=== PATIENT | female | born 2000 | race Caucasian/White ===

== ENCOUNTER 2020-02-29 09:30 | Emergency (ER) | payer OTHER ==
--- NOTE | 2020-02-29 10:13 | EDM.PDOC ---
ED HPI GENERAL MEDICAL PROBLEM - General Chief Complaint: ENT Problem Stated Complaint: R EAR PAIN Time Seen by Provider: 02/29/20 10:07 Source of Information: Reports: Patient History Limitations: Reports: No Limitations - History of Present Illness INITIAL COMMENTS - FREE TEXT/NARRATIVE: 19 yo female from out of town presents with about 3 days of R ear pain. Has a hx of a PE tube in that ear. No fever or cold sx's. No recent swimming. Onset: Gradual Onset Date: 02/26/20 Duration: Day(s): (3), Getting Worse Location: Reports: Head (R ear) Quality: Reports: Ache Severity: Moderate Improves with: Reports: None Worsens with: Reports: None Context: Reports: Other (See HPI) Associated Symptoms: Reports: No Other Symptoms Treatments SUSHI CHEF: Reports: Other (see below) (none today) Right Ear Pain Score (Numeric/FACES): 8 - Related Data Allergies Allergy/AdvReac Type Severity Reaction Status Date / Time ciprofloxacin [From Cipro] Allergy Rash Verified 02/29/20 09:55 Home Meds: Home Meds ARIPiprazole [Abilify] 5 mg PO DAILY 02/29/20 [History] Lisdexamfetamine [Vyvanse] 30 mg PO DAILY 02/29/20 [History] Past Medical History Psychiatric History: Reports: ADHD, Anxiety, Bipolar, Depression Endocrine/Metabolic History: Reports: Obesity/BMI 30+ - Infectious Disease History Infectious Disease History: Reports: Chicken Pox - Past Surgical History HEENT Surgical History: Reports: Adenoidectomy, Tonsillectomy, Other (See Below) Other HEENT Surgeries/Procedures: ear surgery Social & Family History - Tobacco Use Smoking Status *Q: Never Smoker Second Hand Smoke Exposure: No - Caffeine Use Caffeine Use: Reports: Soda - Recreational Drug Use Recreational Drug Use: No ED ROS ENT - Review of Systems Review Of Systems: See Below Constitutional: Reports: No Symptoms HEENT: Reports: Ear Pain. Denies: Ear Discharge Respiratory: Reports: No Symptoms Skin: Reports: No Symptoms ED EXAM, ENT - Physical Exam Exam: See Below Exam Limited By: No Limitations General Appearance: Alert, WD/WN, No Apparent Distress, Obese Eye Exam: Bilateral Eye: Normal Inspection Ears: Normal External Exam, Normal Canal, Hearing Grossly Normal, TM Erythema (on the right), Other (appears to still be a perforation in that R ear drum from her PE tube.). No: Normal TMs Nose: Normal Inspection Mouth/Throat: Normal Inspection, Normal Lips, Normal Oropharynx Head: Atraumatic, Normocephalic Neck: Normal Inspection Respiratory/Chest: No Respiratory Distress, Lungs Clear, Normal Breath Sounds, No Accessory Muscle Use Cardiovascular: Regular Rate, Rhythm Neurological: Alert, Oriented, CN II-XII Intact, Normal Cognition, No Motor/Sensory Deficits Psychiatric: Normal Affect, Normal Mood Skin: Warm, Dry, Intact, Normal Color, No Rash Departure - Departure Time of Disposition: 10:12 Disposition: Home, Self-Care 01 Condition: Good Clinical Impression: Right otitis media Qualifiers: Otitis media type: other nonsuppurative Chronicity: acute Recurrence: not specified as recurrent Qualified Code(s): H65.191 - Other acute nonsuppurative otitis media, right ear - Discharge Information *PRESCRIPTION DRUG MONITORING PROGRAM REVIEWED*: No *COPY OF PRESCRIPTION DRUG MONITORING REPORT IN PATIENT AMISHA: No Instructions: Otitis Media, Adult, [id number] Referrals: PCP,None [Primary Care Provider] - Additional Instructions: Take Amoxicillin 875 mg every 12 hrs until gone. For pain relief take acetaminophen 1000 mg every 6 hrs and/or ibuprofen 600 mg every 6 hrs. Keep water out of your ear. Recheck with your provider early in the week.
== END 2020-02-29 10:21 | disposition home or self-care (01) ==
LOC: JP.ED 09:30
DX: H65.191 Other acute nonsuppurative otitis media, right ear (principal); F31.9 Bipolar disorder, unspecified; F90.9 Attention-deficit hyperactivity disorder, unspecified type; E66.9 Obesity, unspecified; Z68.41 Body mass index [BMI] 40.0-44.9, adult; Z79.899 Other long term (current) drug therapy; Z88.1 Allergy status to other antibiotic agents
CPT/HCPCS: 99282

== ENCOUNTER 2020-12-13 09:30 | Emergency (ER) | payer MEDICAID, OTHER ==
[2020-12-13] MEDS ORDERED: Ketorolac 30 MG/ML SDV IM ONE (10:55)
[2020-12-13] MEDS ORDERED: Ondansetron 4 MG Tab.DIS PO ONE (10:56)
--- NOTE | 2020-12-13 10:59 | EDM.PDOC ---
ED HPI GENERAL MEDICAL PROBLEM - General Chief Complaint: Gastrointestinal Problem Stated Complaint: RIGHT SIDE PAIN/VOMITTING Time Seen by Provider: 12/13/20 10:56 Source of Information: Reports: Patient History Limitations: Reports: No Limitations - History of Present Illness INITIAL COMMENTS - FREE TEXT/NARRATIVE: This is a 20-year-old female with history of PCOS who presents with concerns of sudden onset right-sided pelvic pain. She reports that she was at work this morning had a sudden onset of the pain in the right pelvis. It has been persistent since this time. Currently 01/22. Does have history of ruptured ovarian cyst. There is associated nausea. She has no fevers or chills. No diarrhea. No vaginal bleeding or discharge. No history of prior abdominal francisco geries. Right Lower Abdomen Pain Score (Numeric/FACES): 7 - Related Data Allergies Allergy/AdvReac Type Severity Reaction Status Date / Time ciprofloxacin [From Cipro] Allergy Rash Verified 12/13/20 10:03 Home Meds: Home Meds ARIPiprazole [Abilify] 5 mg PO DAILY 02/29/20 [History] Lisdexamfetamine [Vyvanse] 30 mg PO DAILY 02/29/20 [History] metFORMIN [Glucophage] 500 mg PO WITHDINNER 12/13/20 [History] Past Medical History Genitourinary History: Reports: Other (See Below) Other Genitourinary History: POS Psychiatric History: Reports: ADHD, Anxiety, Bipolar, Depression Endocrine/Metabolic History: Reports: Obesity/BMI 30+ - Infectious Disease History Infectious Disease History: Reports: Chicken Pox - Past Surgical History HEENT Surgical History: Reports: Adenoidectomy, Tonsillectomy, Other (See Below) Other HEENT Surgeries/Procedures: ear surgery Social & Family History - Tobacco Use Tobacco Use Status *Q: Never Tobacco User Second Hand Smoke Exposure: No - Caffeine Use Caffeine Use: Reports: Soda - Recreational Drug Use Recreational Drug Use: No ED ROS GENERAL - Review of Systems Review Of Systems: See Below Constitutional: Reports: No Symptoms HEENT: Reports: No Symptoms Respiratory: Reports: No Symptoms Cardiovascular: Reports: No Symptoms Endocrine: Reports: No Symptoms GI/Abdominal: Reports: Abdominal Pain, Nausea : Reports: No Symptoms Musculoskeletal: Reports: No Symptoms Skin: Reports: No Symptoms Neurological: Reports: No Symptoms Psychiatric: Reports: No Symptoms Hematologic/Lymphatic: Reports: No Symptoms Immunologic: Reports: No Symptoms ED EXAM, GI/ABD - Physical Exam Exam: See Below Exam Limited By: No Limitations General Appearance: Alert, No Apparent Distress Ears: Normal External Exam Nose: Normal Inspection Throat/Mouth: Normal Inspection Head: Atraumatic, Normocephalic Neck: Normal Inspection Respiratory/Chest: Lungs Clear Cardiovascular: Regular Rate, Rhythm GI/Abdominal Exam: Soft, No Distention, Tender (Right-sided pelvic tenderness to palpation) Back Exam: Normal Inspection Extremities: Normal Inspection Neurological: Alert, Oriented Psychiatric: Normal Affect, Normal Mood Skin Exam: Warm, Dry Course - Vital Signs Last Recorded V/S: Last Vital Signs Temp 36.4 C 12/13/20 10:09 Pulse 51 L 12/13/20 10:09 Resp 16 12/13/20 10:09 BP 98/48 L 12/13/20 10:09 Pulse Ox 99 12/13/20 10:09 - Orders/Labs/Meds Orders: Active Orders 24 hr Category Date Time Status Transvaginal Non OB [US] Stat Exams 12/13/20 11:40 Taken Labs: Laboratory Tests 12/13/20 12/13/20 Range/Units 11:06 11:06 WBC 9.3 (4.5-11.0) K/uL RBC 4.74 (3.30-5.50) M/uL Hgb 12.4 (12.0-15.0) g/dL Hct 39.4 (36.0-48.0) % MCV 83 (80-98) fL MCH 26 L (27-31) pg MCHC 32 (32-36) % Plt Count 305 (150-400) K/uL Sodium 142 (140-148) mmol/L Potassium 4.0 (3.6-5.2) mmol/L Chloride 105 (100-108) mmol/L Carbon Dioxide 27 (21-32) mmol/L Anion Gap 9.9 (5.0-14.0) mmol/L BUN 22 H (7-18) mg/dL Creatinine 0.8 (0.6-1.0) mg/dL Est Cr Clr Drug Dosing 83.23 mL/min Estimated GFR (MDRD) > 60 (>60) Glucose 90 (74-106) mg/dL Calcium 8.7 (8.5-10.1) mg/dL Total Bilirubin 0.7 (0.2-1.0) mg/dL AST 12 L (15-37) U/L ALT 30 (12-78) U/L Alkaline Phosphatase 59 (46-116) U/L Total Protein 6.8 (6.4-8.2) g/dL Albumin 3.4 (3.4-5.0) g/dL Globulin 3.4 (2.3-3.5) g/dL Albumin/Globulin Ratio 1.0 L (1.2-2.2) Meds: Medications Discontinued Medications Generic Name Dose Route Start Last Admin Trade Name Freq PRN Reason Stop Dose Admin Fentanyl 50 mcg 12/13/20 12:48 12/13/20 14:07 Fentanyl 100 Mcg/2 Ml Sdv IVPUSH 12/13/20 12:49 50 mcg ONETIME ONE Administration Sodium Chloride 85 mls @ 3 mls/sec 12/13/20 13:15 12/13/20 13:45 Normal Saline IV 12/13/20 13:16 3 mls/sec ASDIRECTED CARLOS ENRIQUE Administration Iopamidol 150 ml 12/13/20 13:15 12/13/20 13:46 Iopamidol 612 Mg/Ml 150 Ml Bottle IV 12/13/20 13:16 150 ml . DIRECTED CARLOS ENRIQUE Administration Ketorolac Tromethamine 30 mg 12/13/20 10:55 12/13/20 11:14 Ketorolac 30 Mg/Ml Sdv IM 12/13/20 10:56 30 mg ONETIME ONE Administration Ondansetron HCl 4 mg 12/13/20 10:56 12/13/20 11:14 Ondansetron 4 Mg Tab.Dis PO 12/13/20 10:57 4 mg ONETIME ONE Administration Sodium Chloride 10 ml 12/13/20 13:06 12/13/20 13:45 Sodium Chloride 0.9% 10 Ml Syringe FLUSH 12/13/20 13:07 10 ml ONETIME ONE Administration - Re-Assessments/Exams Free Text/Narrative Re-Assessment/Exam: 20-year-old history of PCOS presents with concerns of right-sided pelvic pain. On exam she has normal vitals, does have tenderness in the right pelvis. History of ovarian cyst. Primary concern on initial evaluation was for a ruptured cyst or ovarian torsion given the sudden onset and location of her pain, pelvic ultrasound obtained and was unremarkable. Abdominal labs are reassuring. Patient was reevaluated, continued to have significant right lower quadrant tenderness, so we did obtain a CT of the abdomen and pelvis which showed no acute pathology. A prominent but noninflamed appendix is noted. Patient was tolerating p.o. Pain was improving. I think she is safe for discharge. We discussed return precautions and if she does come back to the ER with the same pain it may be reasonable to repeat a CT scan given her findings today. 12/13/20 14:54 Departure - Departure Time of Disposition: 14:56 Disposition: Home, Self-Care 01 Clinical Impression: Abdominal pain - Discharge Information Instructions: Abdominal Pain, Adult Referrals: Danya Jorge PA-C [Primary Care Provider] - Forms: ED Department Discharge Additional Instructions: As we discussed, your work-up today was reassuring. We do not see an emergent cause for your pain and think we can continue to follow it at home. Please eat a bland diet. Take Tylenol for discomfort. If you feel like your symptoms are worsening, particularly if you develop fevers, chills, and lose your appetite it would be good to be reevaluated by a physician. Thank you for trusting us to care for you today. Sepsis Event Note (ED) - Evaluation Sepsis Screening Result: No Definite Risk - Focused Exam Vital Signs: Vital Signs Temp Pulse Resp BP Pulse Ox 12/13/20 10:09 36.4 C 51 L 16 98/48 L 99 12/13/20 09:58 36.4 C 51 L 16 98/48 L 99 - My Orders Last 24 Hours: My Active Orders 12/13/20 11:40 Transvaginal Non OB [US] Stat - Assessment/Plan Last 24 Hours: My Active Orders 12/13/20 11:40 Transvaginal Non OB [US] Stat
[2020-12-13] MEDS ORDERED: fentaNYL 100 MCG/2 ML SDV IVPUSH ONE (12:48)
[2020-12-13] MEDS ORDERED: Sodium Chloride 0.9% 10 ML Syringe FLUSH ONE (13:06)
[2020-12-13] MEDS ORDERED: Iopamidol 612 MG/ML 150 ML Bottle IV SCH (13:15)
--- NOTE | 2020-12-13 14:24 | CRLCT ---
INDICATION: Right lower quadrant pain. TECHNIQUE: CT of the abdomen and pelvis performed after IV injection of 150 mL of Isovue. COMPARISON: Pelvic ultrasound today. FINDINGS: Minimal atelectasis in the lung bases. Minimal subpleural nodularity in the dependent lower lungs is likely related to atelectasis. Mild subcutaneous edema. Mild heterogeneous enhancement of the spleen. Abnormal increased number of small lymph nodes diffusely in the abdominal retroperitoneum. Clusters of small to mildly prominent lymph nodes in the abdominal and pelvic mesentery greatest in the right lower quadrant likely reactive or inflammatory in nature. Small lymph nodes along the iliac lymph node chains in the pelvis are not enlarged by CT criteria. Both ovaries contain small follicles. Small amount of free fluid in the pelvis posteriorly. The appendix is upper limits normal to mildly dilated ranging up to 7-8 mm in transverse diameter. Appendix contains a small high-dense amount of high density in its distal lumen either an appendicolith or previously ingested high-density material. The appendiceal wall is mildly thickened however there is no periappendiceal soft tissue stranding to suggest acute appendicitis. If patient`s right lower quadrant pain continues or worsens, repeat imaging of the appendix in the short-term could re-evaluate. At this time, the CT findings are not prominent enough to suggest appendicitis. Remainder negative. IMPRESSION: 1. The appendix is upper limits normal to mildly dilated and its wall is mildly thickened but there is no acute inflammatory fat stranding around the appendix. Findings are not prominent up by CT to suggest acute appendicitis. If the right lower quadrant pain persists or worsens or clinical suspicion for appendicitis persists repeat CT of the pelvis could be done to reassess the appendix. 2. Very small amount of free fluid in the pelvis posteriorly likely physiologic in a patient of this age. 3. Increased number of lymph nodes in the abdomen and pelvis most of which are normal in size but a few which in the right lower quadrant are clustered and mildly prominent but likely reactive or inflammatory in nature. Other findings as above. Please note that all CT scans at this facility use dose modulation, iterative reconstruction, and/or weight-based dosing when appropriate to reduce radiation dose to as low as reasonably achievable. Dictated by Sung Bruner MD @ 12/13/2020 2:22:[address] Sung Bruner @ Dec 13 2020 2:22PM
--- NOTE | 2020-12-16 07:25 | CRLUS ---
Final Report: INDICATION: right pelvic pain, ? rupture ovarian cyst/torsion HISTORY: Right-sided abdominal pain. Evaluate for ovarian torsion or ruptured cyst. COMPARISON: None. TECHNIQUE: Transabdominal and endovaginal imaging of the pelvis was obtained. Endovaginal imaging of the pelvis was obtained to better evaluate the adnexa and endometrial complex. Color/spectral Doppler was performed to evaluate for ovarian torsion. FINDINGS: Uterine corpus measures 7.2 x 3.4 x 4.0 cm. Endometrial complex measures 2 mm on transabdominal imaging. There is no endometrial or myometrial mass. The right ovary measures 2.9 x 2.0 x 2.6 cm. Left ovary measures 3.7 x 2.7 x 3.5 cm. There is no adnexal mass. There is no evidence on grayscale imaging, or color/spectral Doppler, for ovarian torsion. There are peripherally oriented follicular cysts in both ovaries. Ovarian volumes do not appear enlarged. IMPRESSION: 1. There is no adnexal mass. 2. Small amount of free fluid in the rectovaginal pouch of [place], physiologic in a patient of this age. 3. No evidence on grayscale imaging, or color/spectral Doppler, for ovarian torsion. Normal, low resistance, arterial blood flow is preserved to both ovaries on color/spectral Doppler. Dictated by Parker Edwards MD @ 12/13/2020 12:37:24 PM Dictated by: Parker Edwards MD @ 12/13/2020 12:37:31 Signed by: Parker Edwards MD @12/13/2020 12:37:31 PM (Electronic Signature) MTDD
== END 2020-12-13 15:30 | disposition home or self-care (01) ==
LOC: JP.ED 09:30
DX: R10.2 Pelvic and perineal pain (principal); E28.2 Polycystic ovarian syndrome; E66.9 Obesity, unspecified; Z68.41 Body mass index [BMI] 40.0-44.9, adult; Z88.1 Allergy status to other antibiotic agents; Z79.899 Other long term (current) drug therapy; Z79.84 Long term (current) use of oral hypoglycemic drugs
CPT/HCPCS: 36415; 74177; 76830; 76856; 80053; 85027; 96372; 96374; 99284; A9270; J1885; J3010; Q9967

== ENCOUNTER 2020-12-23 08:56 | Emergency (ER) | payer OTHER, MEDICAID ==
[2020-12-23] MEDS ORDERED: Ketorolac 60 MG/2 ML SDV IM ONE (09:51)
--- NOTE | 2020-12-23 10:07 | EDM.PDOC ---
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 She woke up yesterday morning with an intense pain in her right upper back and right shoulder, was seen in the clinic and an x-ray was taken and she was diagnosed with an AC separation. She is scheduled to see orthopedics tomorrow. Her right arm is in a sling, but today her pain is worse so they wanted to be checked. No paresthesias into the hand, no shortness of breath or chest pain. No specific trauma. Onset: Unknown/Unsure (Woke up with pain yesterday morning) Location: Reports: Upper Extremity, Right Associated Symptoms: Reports: No Other Symptoms Right Shoulder Pain Score (Numeric/FACES): 10 - Related Data Allergies Allergy/AdvReac Type Severity Reaction Status Date / Time ciprofloxacin [From Cipro] Allergy Rash Verified 12/23/20 09:24 Home Meds: Home Meds ARIPiprazole [Abilify] 5 mg PO DAILY 02/29/20 [History] Lisdexamfetamine [Vyvanse] 30 mg PO DAILY 02/29/20 [History] metFORMIN [Glucophage] 500 mg PO WITHDINNER 12/13/20 [History] Cyclobenzaprine [Flexeril] 10 mg PO TID 12/23/20 [History] Ibuprofen 300 mg PO Q6HR PRN 12/23/20 [History] LORazepam [Lorazepam] 0.5 mg PO ASDIRECTED 12/23/20 [History] Norethindrone-Ethin. Estradiol [Alyacen] 1 each PO DAILY 12/23/20 [History] Past Medical History Genitourinary History: Reports: Other (See Below) Other Genitourinary History: PSO Psychiatric History: Reports: ADHD, Anxiety, Bipolar, Depression Endocrine/Metabolic History: Reports: Obesity/BMI 30+ - Infectious Disease History Infectious Disease History: Reports: Chicken Pox, Novel Coronavirus Other Infectious Disease History: covid 06/2020 - Past Surgical History HEENT Surgical History: Reports: Adenoidectomy, Tonsillectomy, Other (See Below) Other HEENT Surgeries/Procedures: ear surgery Social & Family History - Tobacco Use Tobacco Use Status *Q: Never Tobacco User - Caffeine Use Caffeine Use: Reports: Soda - Recreational Drug Use Recreational Drug Use: No ED ROS GENERAL - Review of Systems Review Of Systems: See Below Constitutional: Denies: Fever, Chills HEENT: Denies: Vision Change Respiratory: Denies: Shortness of Breath GI/Abdominal: Denies: Abdominal Pain, Nausea, Vomiting Musculoskeletal: Reports: Neck Pain, Shoulder Pain, Arm Pain, Back Pain Skin: Denies: Bruising, Rash Neurological: Denies: Paresthesia (No paresthesias of the right arm) Psychiatric: Reports: No Symptoms ED EXAM, UPPER BACK/NECK PAIN - Physical Exam Exam: See Below Exam Limited By: No Limitations General Appearance: Alert, No Apparent Distress, Other (Does look uncomfortable when moving especially the right shoulder or right arm) Head Exam: Atraumatic Neck Exam: Tenderness, Other (She is tender over the lower paracervical muscles on the right side into the rhomboid and trapezius) Cardiovascular/Respiratory: Regular Rate, Rhythm Extremities: Other (Full range of motion passively of the right shoulder but tender with extension and rotation. On palpation the trapezius, rhomboid on the right side and across the posterior shoulder is very tender to palpation) Neurologic: Normal Mood/Affect, Oriented x 3 Course - Vital Signs Last Recorded V/S: Last Vital Signs Temp 97.7 F 12/23/20 09:19 Pulse 66 12/23/20 09:19 Resp 16 12/23/20 09:19 BP 122/77 12/23/20 09:19 Pulse Ox 97 12/23/20 09:19 - Orders/Labs/Meds Meds: Medications Discontinued Medications Generic Name Dose Route Start Last Admin Trade Name Freq PRN Reason Stop Dose Admin Ketorolac Tromethamine 60 mg 12/23/20 09:51 12/23/20 09:56 Ketorolac 60 Mg/2 Ml Sdv IM 12/23/20 09:52 60 mg ONETIME ONE Administration - Re-Assessments/Exams Free Text/Narrative Re-Assessment/Exam: 12/23/20 17:19 Reviewed the x-ray from the clinic, there was minimal if any AC separation read and clinical correlation was advised. There is no trauma to the shoulder, this is unlikely AC separation but more likely just to strain of the rhomboid and trapezius on the right side. She can keep her appointment tomorrow, she was given an injection of Toradol and a small amount of hydrocodone for extra pain control until tomorrow. She was encouraged to take the sling off, use the arm as much as possible and some heat to the area may be beneficial. Departure - Departure Time of Disposition: 10:17 Disposition: Home, Self-Care 01 Clinical Impression: Trapezius strain Qualifiers: Encounter type: initial encounter Laterality: right Qualified Code(s): S46.811A - Strain of other muscles, fascia and tendons at shoulder and upper arm level, right arm, initial encounter - Discharge Information Instructions: Muscle Strain, [id number] Referrals: Danya Jorge PA-C [Primary Care Provider] - Forms: ED Department Discharge Care Plan Goals: Increase activity as tolerated and recheck tomorrow as scheduled. Continue with medications as prescribed. Heat may be more beneficial. Sepsis Event Note (ED) - Evaluation Sepsis Screening Result: No Definite Risk - Focused Exam Vital Signs: Vital Signs Temp Pulse Resp BP Pulse Ox 12/23/20 09:19 97.7 F 66 16 122/77 97
== END 2020-12-23 10:17 | disposition home or self-care (01) ==
LOC: JP.ED 08:56
DX: S46.811A Strain of other muscles, fascia and tendons at shoulder and upper arm level, right arm, initial encounter (principal); E66.9 Obesity, unspecified; Z68.30 Body mass index [BMI] 30.0-30.9, adult; Z86.16 Personal history of COVID-19; Z88.1 Allergy status to other antibiotic agents; X50.1XXA Overexertion from prolonged static or awkward postures, initial encounter; Y99.0 Civilian activity done for income or pay
CPT/HCPCS: 96372; 99283; J1885

== ENCOUNTER 2021-01-17 11:20 | Emergency (ER) | payer MEDICAID ==
--- NOTE | 2021-01-17 13:38 | EDM.PDOC ---
ED HPI GENERAL MEDICAL PROBLEM - General Chief Complaint: ENT Problem Stated Complaint: RIGHT EAR ACHE HAD SURGERY Time Seen by Provider: 01/17/21 13:20 Source of Information: Reports: Patient History Limitations: Reports: No Limitations - History of Present Illness INITIAL COMMENTS - FREE TEXT/NARRATIVE: 20-year-old female who [place] and now has had significant pain in her right ear for the past 2 days. She noticed a small amount of draining as well, some pain is radiating down into the jaw. No cough, shortness of breath or fever. Onset: Gradual Duration: Day(s): (2 days) Location: Reports: Other (Right ear) Associated Symptoms: Reports: No Other Symptoms - Related Data Allergies Allergy/AdvReac Type Severity Reaction Status Date / Time ciprofloxacin [From Cipro] Allergy Rash Verified 01/17/21 13:14 Home Meds: Home Meds ARIPiprazole [Abilify] 5 mg PO DAILY 02/29/20 [History] Lisdexamfetamine [Vyvanse] 30 mg PO DAILY 02/29/20 [History] metFORMIN [Glucophage] 500 mg PO WITHDINNER 12/13/20 [History] Cyclobenzaprine [Flexeril] 10 mg PO TID 12/23/20 [History] Ibuprofen 300 mg PO Q6HR PRN 12/23/20 [History] LORazepam [Lorazepam] 0.5 mg PO ASDIRECTED 12/23/20 [History] Norethindrone-Ethin. 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 Psychiatric History: Reports: ADHD, Anxiety, Bipolar, Depression Endocrine/Metabolic History: Reports: Obesity/BMI 30+ - Infectious Disease History Infectious Disease History: Reports: Chicken Pox, Novel Coronavirus Other Infectious Disease History: covid 06/2020 - Past Surgical History Head Surgeries/Procedures: Reports: None HEENT Surgical History: Reports: Adenoidectomy, Tonsillectomy, Other (See Below) Other HEENT Surgeries/Procedures: ear surgery Female Surgical History: Reports: None Endocrine Surgical History: Reports: None Dermatological Surgical History: Reports: None Social & Family History - Tobacco Use Tobacco Use Status *Q: Never Tobacco User Second Hand Smoke Exposure: No - Caffeine Use Caffeine Use: Reports: Soda - Recreational Drug Use Recreational Drug Use: No ED ROS ENT - Review of Systems Review Of Systems: See Below Constitutional: Denies: Fever, Chills HEENT: Reports: Ear Pain (Right side only) Respiratory: Reports: No Symptoms GI/Abdominal: Reports: No Symptoms Skin: Denies: Erythema (No erythema of the right face) Neurological: Denies: Headache ED EXAM, ENT - Physical Exam Exam: See Below Exam Limited By: No Limitations General Appearance: Alert, No Apparent Distress (Looks uncomfortable but not distressed) Eye Exam: Bilateral Eye: Normal Inspection Ears: Normal TMs (Tympanic membranes look fairly normal bilaterally, she has some significant cerumen on the left side but the right side is clear but very inflamed, canal is exudative and helix is tender to move) Head: Atraumatic Neck: No: Lymphadenopathy (R), Lymphadenopathy (L) Respiratory/Chest: No Respiratory Distress, Lungs Clear Cardiovascular: Regular Rate, Rhythm Course - Vital Signs Last Recorded V/S: Last Vital Signs Temp 97.7 F 01/17/21 13:16 Pulse 64 01/17/21 13:16 Resp 16 01/17/21 13:16 BP 117/54 L 01/17/21 13:16 Pulse Ox 99 01/17/21 13:16 - Re-Assessments/Exams Free Text/Narrative Re-Assessment/Exam: 01/17/21 13:36 Patient has right-sided otitis externa. I encouraged her to continue with anti- inflammatories as needed for discomfort, and place 4 drops of Cortisporin into the right ear every 4 hours for the next several days until it improves. If not improving in 48 to 72 hours she can recheck. Departure - Departure Time of Disposition: 13:44 Disposition: Home, Self-Care 01 Clinical Impression: Otitis externa Qualifiers: Otitis externa type: swimmer's ear Chronicity: acute Laterality: right Qualified Code(s): H60.331 - Swimmer's ear, right ear - Discharge Information Instructions: Otitis Externa Referrals: Danya Jorge PA-C [Primary Care Provider] - Forms: ED Department Discharge Care Plan Goals: Take a regular dose of Aleve or ibuprofen which will be helpful for pain, and placed 4 drops of Cortisporin into your right ear every 4 hours for the next several days until it quiets down and improves and stops hurting. Keep ear dry during treatment, and recheck in 2 to 3 days if not improving satisfactorily. Sepsis Event Note (ED) - Evaluation Sepsis Screening Result: No Definite Risk - Focused Exam Vital Signs: Vital Signs Temp Pulse Resp BP Pulse Ox 01/17/21 13:16 97.7 F 64 16 117/54 L 99 01/17/21 12:20 97.7 F 64 117/54 L 99
== END 2021-01-17 13:44 | disposition home or self-care (01) ==
LOC: JP.ED 11:20
DX: H60.331 Swimmer's ear, right ear (principal); H60.501 Unspecified acute noninfective otitis externa, right ear; E66.9 Obesity, unspecified; Z68.42 Body mass index [BMI] 45.0-49.9, adult; Z86.16 Personal history of COVID-19; Z88.1 Allergy status to other antibiotic agents
CPT/HCPCS: 99282

== ENCOUNTER 2021-03-17 07:31 | Emergency (ER) | payer MEDICAID ==
[2021-03-17] MEDS ORDERED: Sodium Chloride 0.9% 10 ML Syringe FLUSH PRN (08:03)
--- NOTE | 2021-03-17 08:07 | EDM.PDOC ---
ED HPI GENERAL MEDICAL PROBLEM - General Chief Complaint: Abdominal Pain Stated Complaint: stomach pain began about 5:30 Time Seen by Provider: 03/17/21 07:58 Source of Information: Reports: Patient, Family, RN Notes Reviewed History Limitations: Reports: No Limitations - History of Present Illness INITIAL COMMENTS - FREE TEXT/NARRATIVE: 20-year-old female presents emergency department a sudden onset abdominal pain, she states it started about 2 hours prior to presentation in the emergency department it is predominantly in her right lower quadrant and is intense she states she is not passing gas does feel nauseated no shortness of breath or chest pain no history of abdominal surgeries Right Lower Abdomen Pain Score (Numeric/FACES): 8 - Related Data Allergies Allergy/AdvReac Type Severity Reaction Status Date / Time ciprofloxacin [From Cipro] Allergy Rash Verified 03/17/21 07:54 Home Meds: Home Meds ARIPiprazole [Abilify] 5 mg PO DAILY 02/29/20 [History] Lisdexamfetamine [Vyvanse] 30 mg PO DAILY 02/29/20 [History] metFORMIN [Glucophage] 500 mg PO WITHDINNER 12/13/20 [History] Norethindrone-Ethin. 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 Psychiatric History: Reports: ADHD, Anxiety, Bipolar, Depression Endocrine/Metabolic History: Reports: Obesity/BMI 30+ - Infectious Disease History Infectious Disease History: Reports: Chicken Pox, Novel Coronavirus Other Infectious Disease History: covid 06/2020 - Past Surgical History HEENT Surgical History: Reports: Adenoidectomy, Tonsillectomy, Other (See Below) Other HEENT Surgeries/Procedures: ear surgery Social & Family History - Tobacco Use Tobacco Use Status *Q: Never Tobacco User - Caffeine Use Caffeine Use: Reports: None - Recreational Drug Use Recreational Drug Use: No ED ROS GENERAL - Review of Systems Review Of Systems: See Below Constitutional: Reports: No Symptoms HEENT: Reports: No Symptoms Respiratory: Reports: No Symptoms Cardiovascular: Reports: No Symptoms GI/Abdominal: Reports: Abdominal Pain, Nausea. Denies: Flatus, Vomiting : Reports: No Symptoms ED EXAM, GI/ABD - Physical Exam Exam: See Below Exam Limited By: No Limitations General Appearance: Alert, WD/WN, No Apparent Distress Respiratory/Chest: No Respiratory Distress, Lungs Clear, Normal Breath Sounds, No Accessory Muscle Use, Chest Non-Tender Cardiovascular: Regular Rate, Rhythm, No Murmur GI/Abdominal Exam: Normal Bowel Sounds, Soft, No Distention, Guarding, Rebound, Tender (Right lower quadrant) Course - Vital Signs Last Recorded V/S: Last Vital Signs Temp 97.3 F 03/17/21 07:47 Pulse 75 03/17/21 07:47 Resp 20 03/17/21 07:47 BP 105/43 L 03/17/21 07:47 Pulse Ox 96 03/17/21 07:47 - Orders/Labs/Meds Orders: Active Orders 24 hr Category Date Time Status Peripheral IV Care [RC] . DIRECTED Care 03/17/21 08:04 Active Lactated Ringers [Ringers, Lactated] 1,000 ml Med 03/17/21 08:15 Active IV ASDIRECTED Sodium Chloride 0.9% [Saline Flush] Med 03/17/21 08:03 Active 10 ml FLUSH ASDIRECTED PRN Peripheral IV Insertion Adult [OM.PC] Urgent Oth 03/17/21 08:03 Ordered Medication Orders Lactated Ringer's (Ringers, Lactated) 1,000 mls @ 500 mls/hr IV ASDIRECTED CARLOS ENRIQUE Last Admin: 03/17/21 08:20 Dose: 500 mls/hr Documented by: KEISHA Sodium Chloride (Sodium Chloride 0.9% 10 Ml Syringe) 10 ml FLUSH ASDIRECTED PRN PRN Reason: Keep Vein Open Labs: Laboratory Tests 03/17/21 03/17/21 03/17/21 Range/Units 08:18 08:18 08:18 WBC 9.9 (4.5-11.0) K/uL RBC 4.88 (3.30-5.50) M/uL Hgb 13.2 (12.0-15.0) g/dL Hct 40.0 (36.0-48.0) % MCV 82 (80-98) fL MCH 27 (27-31) pg MCHC 33 (32-36) % Plt Count 270 (150-400) K/uL Neut % (Auto) 59.5 (36-66) % Lymph % (Auto) 28.7 (24-44) % Park % (Auto) 8.2 H (2-6) % Eos % (Auto) 2.9 (2-4) % Baso % (Auto) 0.7 (0-1) % Sodium 138 L (140-148) mmol/L Potassium 3.8 (3.6-5.2) mmol/L Chloride 103 (100-108) mmol/L Carbon Dioxide 27 (21-32) mmol/L Anion Gap 11.8 (5.0-14.0) mmol/L BUN 19 H (7-18) mg/dL Creatinine 0.8 (0.6-1.0) mg/dL Est Cr Clr Drug Dosing 79.23 mL/min Estimated GFR (MDRD) > 60 (>60) Glucose 93 (74-106) mg/dL Lactic Acid 1.1 (0.4-2.0) mmol/L Calcium 8.7 (8.5-10.1) mg/dL Total Bilirubin 0.9 (0.2-1.0) mg/dL AST 28 D (15-37) U/L ALT 51 (12-78) U/L Alkaline Phosphatase 62 (46-116) U/L Total Protein 7.1 (6.4-8.2) g/dL Albumin 3.4 (3.4-5.0) g/dL Globulin 3.7 H (2.3-3.5) g/dL Albumin/Globulin Ratio 0.9 L (1.2-2.2) HCG, Qual Urine Color (YELLOW) Urine Appearance (CLEAR) Urine pH (5.0-8.0) Ur Specific [place] (1.008-1.030) Urine Protein (NEGATIVE) mg/dL Urine Glucose (UA) (NEGATIVE) mg/dL Urine Ketones (NEGATIVE) mg/dL Urine Occult Blood (NEGATIVE) Urine Nitrite (NEGATIVE) Urine Bilirubin (NEGATIVE) Urine Urobilinogen (0.2-1.0) EU/dL Ur Leukocyte Esterase (NEGATIVE) Urine RBC (0-5) Urine WBC (0-5) Ur Epithelial Cells Amorphous Sediment Urine Bacteria Urine Mucus Urine Other 03/17/21 03/17/21 Range/Units 08:18 09:35 WBC (4.5-11.0) K/uL RBC (3.30-5.50) M/uL Hgb (12.0-15.0) g/dL Hct (36.0-48.0) % MCV (80-98) fL MCH (27-31) pg MCHC (32-36) % Plt Count (150-400) K/uL Neut % (Auto) (36-66) % Lymph % (Auto) (24-44) % Park % (Auto) (2-6) % Eos % (Auto) (2-4) % Baso % (Auto) (0-1) % Sodium (140-148) mmol/L Potassium (3.6-5.2) mmol/L Chloride (100-108) mmol/L Carbon Dioxide (21-32) mmol/L Anion Gap (5.0-14.0) mmol/L BUN (7-18) mg/dL Creatinine (0.6-1.0) mg/dL Est Cr Clr Drug Dosing mL/min Estimated GFR (MDRD) (>60) Glucose (74-106) mg/dL Lactic Acid (0.4-2.0) mmol/L Calcium (8.5-10.1) mg/dL Total Bilirubin (0.2-1.0) mg/dL AST (15-37) U/L ALT (12-78) U/L Alkaline Phosphatase (46-116) U/L Total Protein (6.4-8.2) g/dL Albumin (3.4-5.0) g/dL Globulin (2.3-3.5) g/dL Albumin/Globulin Ratio (1.2-2.2) HCG, Qual Negative Urine Color Yellow (YELLOW) Urine Appearance Clear (CLEAR) Urine pH 7.5 (5.0-8.0) Ur Specific [place] 1.020 (1.008-1.030) Urine Protein Negative (NEGATIVE) mg/dL Urine Glucose (UA) Negative (NEGATIVE) mg/dL Urine Ketones Negative (NEGATIVE) mg/dL Urine Occult Blood Negative (NEGATIVE) Urine Nitrite Negative (NEGATIVE) Urine Bilirubin Negative (NEGATIVE) Urine Urobilinogen 0.2 (0.2-1.0) EU/dL Ur Leukocyte Esterase Negative (NEGATIVE) Urine RBC 0-5 (0-5) Urine WBC 0-5 (0-5) Ur Epithelial Cells Moderate Amorphous Sediment Few Urine Bacteria Few Urine Mucus Not seen Urine Other See note Meds: Medications Generic Name Dose Route Start Last Admin Trade Name Freq PRN Reason Stop Dose Admin Lactated Ringer's 1,000 mls @ 500 mls/hr 03/17/21 08:15 03/17/21 08:20 Ringers, Lactated IV 500 mls/hr ASDIRECTED CARLOS ENRIQUE Administration Sodium Chloride 10 ml 03/17/21 08:03 Sodium Chloride 0.9% 10 Ml Syringe FLUSH ASDIRECTED PRN Keep Vein Open Discontinued Medications Generic Name Dose Route Start Last Admin Trade Name Freq PRN Reason Stop Dose Admin Fentanyl 50 mcg 03/17/21 10:28 Fentanyl 100 Mcg/2 Ml Sdv IVPUSH 03/17/21 10:29 ONETIME ONE Sodium Chloride 85 mls @ 3 mls/sec 03/17/21 08:15 03/17/21 09:09 Normal Saline IV 03/17/21 08:16 3 mls/sec ASDIRECTED CARLOS ENRIQUE Administration Iopamidol 150 ml 03/17/21 08:15 03/17/21 09:10 Iopamidol 612 Mg/Ml 150 Ml Bottle IV 03/17/21 08:16 150 ml . DIRECTED CARLOS ENRIQUE Administration Ondansetron HCl 4 mg 03/17/21 10:28 Ondansetron 4 Mg/2 Ml Sdv IVPUSH 03/17/21 10:29 ONETIME ONE Sodium Chloride 10 ml 03/17/21 08:08 03/17/21 09:09 Sodium Chloride 0.9% 10 Ml Syringe FLUSH 03/17/21 08:09 10 ml ONETIME ONE Administration Departure - Departure Time of Disposition: 10:36 Disposition: Home, Self-Care 01 Condition: Fair Clinical Impression: Abdominal pain Qualifiers: Abdominal location: right lower quadrant Qualified Code(s): R10.31 - Right lower quadrant pain - Discharge Information Prescriptions: Cefuroxime [Ceftin] 250 mg PO BID #14 tab metroNIDAZOLE [Flagyl] 500 mg PO Q12H #14 tab Acetaminophen/HYDROcodone [HYDROcodone-Acetaminophen 5-325 MG *] 1 tab PO Q6H PRN #10 each PRN Reason: Pain Instructions: Abdominal Pain, Adult Referrals: PCP,None [Primary Care Provider] - Forms: ED Department Discharge, ED Return to Work/School Form Additional Instructions: Use ibuprofen for baseline pain control use hydrocodone for breakthrough pain, start both antibiotics today please follow-up with general surgery at the [facility] if not better Dr. Mckeon, if symptoms become worse please report to the emergency department for further evaluation Sepsis Event Note (ED) - Focused Exam Vital Signs: Vital Signs Temp Pulse Resp BP Pulse Ox 03/17/21 07:47 97.3 F 75 20 105/43 L 96 - My Orders Last 24 Hours: My Active Orders 03/17/21 08:03 Sodium Chloride 0.9% [Saline Flush] 10 ml FLUSH ASDIRECTED PRN Peripheral IV Insertion Adult [OM.PC] Urgent 03/17/21 08:04 Peripheral IV Care [RC] . DIRECTED 03/17/21 08:15 Lactated Ringers [Ringers, Lactated] 1,000 ml IV ASDIRECTED - Assessment/Plan Last 24 Hours: My Active Orders 03/17/21 08:03 Sodium Chloride 0.9% [Saline Flush] 10 ml FLUSH ASDIRECTED PRN Peripheral IV Insertion Adult [OM.PC] Urgent 03/17/21 08:04 Peripheral IV Care [RC] . DIRECTED 03/17/21 08:15 Lactated Ringers [Ringers, Lactated] 1,000 ml IV ASDIRECTED Plan: Assessment Acuity = acute Site and laterality = right lower quadrant pain Etiology = possibly early acute appendicitis unclear Manifestations = none Location of injury = Home Lab values = CBC, CMP, lactic acid all within normal limits hCG was negative CT scan of the abdomen shows unclear etiology possible acute early appendicitis Plan Call discussed case Dr. Mckeon surgeon on-call at 1030 recommended watchful waiting at this time however placed on antibiotics of Ceftin 250 mg p.o. twice daily x7 days as well as Flagyl 500 mg p.o. twice daily x7 days, prescription written for hydrocodone 5/325 1 tab p.o. every 6 hours as needed total #10, will follow up with general surgery if no improvement return to the emergency department worsening of symptoms This note was dictated using [employer] voice recognition software please call with any questions on syntax or grammar.
[2021-03-17] MEDS ORDERED: Iopamidol 612 MG/ML 150 ML Bottle IV SCH (08:15)
[2021-03-17] MEDS ORDERED: Lactated Ringers 1,000 ML IV SCH (08:15)
[2021-03-17] MEDS: Sodium Chloride 0.9% 10 ML Syringe FLUSH ONE ×2 (08:21→09:09)
--- NOTE | 2021-03-17 10:04 | CT ---
Abdomen Pelvis w Cont CLINICAL HISTORY: Right lower quadrant pain COMPARISON: November 2020. TECHNIQUE: Transverse scans were obtained from the base of the lungs to the pubic symphysis following oral contrast and IV infusion of contrast.Auto dosage reduction and iterative reconstructiontechniques employed. FINDINGS: The lung bases are clear. The liver is free of mass or biliary dilatation. The gallbladder has a normal contour. The spleen has a normal size and shape. The pancreas shows no mass or inflammatory change. The adrenal glands appear normal bilaterally . The kidneys are free of mass, stones or hydronephrosis.. The ureters have a normal course and caliber. The bladder has a normal configuration. The uterus has a normal contour. No adnexal masses or abnormal fluid collections are identified.. The aorta has a normal course and caliber. There is no suspicious retroperitoneal lymphadenopathy The small intestinal configuration is nonacute. There is gas and feces throughout the colon. The appendix measures a maximum diameter of 8 mm which is upper limits of normal. There is a small appendicolith in the proximal third There is no significant stranding in the periappendiceal fat. There are a few small mesenteric lymph nodes in the mid and right abdomen. These appear slightly more prominent than on prior study. IMPRESSION: Appendix measures upper limits of normal diameter but is similar to the study from November 2020. Small appendicolith unchanged. No significant inflammatory changes are seen in the right lower quadrant. Low-grade appendicitis cannot be absolutely excluded Scattered mildly prominent lymph nodes in the mesentery. This may be increased slightly since prior study. This can be seen with mesenteric adenitis
[2021-03-17] MEDS ORDERED: fentaNYL 100 MCG/2 ML SDV IVPUSH ONE (10:28)
[2021-03-17] MEDS ORDERED: Ondansetron 4 MG/2 ML SDV IVPUSH ONE (10:28)
== END 2021-03-17 11:15 | disposition home or self-care (01) ==
LOC: JP.ED 07:31
DX: R10.31 Right lower quadrant pain (principal); E66.9 Obesity, unspecified; Z68.42 Body mass index [BMI] 45.0-49.9, adult; Z88.1 Allergy status to other antibiotic agents; Z79.84 Long term (current) use of oral hypoglycemic drugs; Z79.899 Other long term (current) drug therapy; Z86.16 Personal history of COVID-19
CPT/HCPCS: 36415; 74177; 80053; 81001; 83605; 84703; 85025; 96374; 96375; 99284; J2405; J3010; J7120; Q9967

== ENCOUNTER 2021-03-20 07:15 | Emergency (ER) | payer MEDICAID ==
--- NOTE | 2021-03-20 08:02 | EDM.PDOC ---
ED HPI GENERAL MEDICAL PROBLEM - General Chief Complaint: ENT Problem Stated Complaint: LEFT EAR PAIN Time Seen by Provider: 03/20/21 07:45 Source of Information: Reports: Patient, Old Records, RN History Limitations: Reports: No Limitations - History of Present Illness INITIAL COMMENTS - FREE TEXT/NARRATIVE: 20 yo female presents with L ear drainage. Says the ear felt plugged and she pulled in the ear yesterday. Overnight she had a lot of brown drainage and now the ear is not as plugged. Is having a mild amount of pain. No fever. Is currently taking metronidazole and Ceftin for concern about early appendicitis. Does not mention any abdominal pain today. Has issues with recurrent ear infections and has a tube in the L ear "permanently". Onset: Gradual Onset Date: 03/19/21 Duration: Hour(s):, Constant (plugged feeling is better however) Location: Reports: Head (L ear) Quality: Reports: Dull Severity: Mild Improves with: Reports: None Worsens with: Reports: None Context: Reports: Other (See HPI) Associated Symptoms: Reports: No Other Symptoms Treatments [employer] ROOTED HAIR: Reports: Other (see below) (on 2 antibiotics currently) left ear Pain Score (Numeric/FACES): 9 - Related Data Allergies Allergy/AdvReac Type Severity Reaction Status Date / Time No Known Allergies Allergy Verified 03/20/21 07:48 Home Meds: Home Meds Acetaminophen/HYDROcodone [HYDROcodone-Acetaminophen 5-325 MG *] 1 tab PO Q6H PRN #10 each 03/17/21 [Rx] Cefuroxime [Ceftin] 250 mg PO BID #14 tab 03/17/21 [Rx] Omeprazole 40 mg PO DAILY 03/17/21 [History] metroNIDAZOLE [Flagyl] 500 mg PO Q12H #14 tab 03/17/21 [Rx] Past Medical History HEENT History: Reports: Impaired Vision Genitourinary History: Reports: Other (See Below) 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 Psychiatric History: Reports: ADHD, Anxiety, Bipolar, Depression Endocrine/Metabolic History: Reports: Obesity/BMI 30+ - Infectious Disease History Infectious Disease History: Reports: Chicken Pox, Novel Coronavirus Other Infectious Disease History: covid 06/2020 - Past Surgical History Head Surgeries/Procedures: Reports: None HEENT Surgical History: Reports: Adenoidectomy, Tonsillectomy, Other (See Below) Other HEENT Surgeries/Procedures: ear surgery Female Surgical History: Reports: None Endocrine Surgical History: Reports: None Dermatological Surgical History: Reports: None Social & Family History - Tobacco Use Tobacco Use Status *Q: Never Tobacco User - Caffeine Use Caffeine Use: Reports: None - Recreational Drug Use Recreational Drug Use: No ED ROS ENT - Review of Systems Review Of Systems: See Below Constitutional: Reports: No Symptoms HEENT: Reports: Ear Discharge (brown drainage overnight), Ear Pain (Mild, left) Respiratory: Reports: No Symptoms Skin: Reports: No Symptoms ED EXAM, ENT - Physical Exam Exam: See Below Exam Limited By: No Limitations General Appearance: Alert, WD/WN, No Apparent Distress Eye Exam: Bilateral Eye: Normal Inspection Ears: Normal External Exam, Normal Canal, Hearing Grossly Normal, Normal TMs. No: Hearing Loss, Auricular Tenderness, Canal Blood, Canal Discharge, Canal Swelling, TM Obscured by Cerumen (the drainage from the L ear looks like cerumen. There is no remaining wax in that ear. ), Cerumen Impaction Nose: Normal Inspection, No Blood Mouth/Throat: Normal Inspection, Normal Lips, Normal Oropharynx Head: Atraumatic, Normocephalic Neck: Normal Inspection Neurological: Alert, Oriented, CN II-XII Intact, Normal Cognition, No Motor/Sensory Deficits Psychiatric: Normal Affect, Normal Mood Skin: Warm, Dry, Intact, Normal Color, No Rash Course - Vital Signs Last Recorded V/S: Last Vital Signs Temp 36.4 C 03/20/21 07:36 Pulse 56 L 03/20/21 07:36 Resp 14 03/20/21 07:36 BP 113/37 L 03/20/21 07:36 Pulse Ox 96 03/20/21 07:36 Departure - Departure Time of Disposition: 08:02 Disposition: Home, Self-Care 01 Condition: Good Clinical Impression: Left ear pain - Discharge Information *PRESCRIPTION DRUG MONITORING PROGRAM REVIEWED*: Not Applicable *COPY OF PRESCRIPTION DRUG MONITORING REPORT IN PATIENT AMISHA: Not Applicable Instructions: Earache, Adult Referrals: PCP,None [Primary Care Provider] - Additional Instructions: Continue current medications. Add either acetaminophen or ibuprofen for pain relief. Stay in touch with your ENT and/or family doctor regarding your condition. Return as needed. Sepsis Event Note (ED) - Evaluation Sepsis Screening Result: No Definite Risk - Focused Exam Vital Signs: Vital Signs Temp Pulse Resp BP Pulse Ox 03/20/21 07:36 36.4 C 56 L 14 113/37 L 96
== END 2021-03-20 08:13 | disposition home or self-care (01) ==
LOC: JP.ED 07:15
DX: H92.02 Otalgia, left ear (principal); E66.9 Obesity, unspecified; Z68.42 Body mass index [BMI] 45.0-49.9, adult; Z86.16 Personal history of COVID-19; Z79.899 Other long term (current) drug therapy
CPT/HCPCS: 99282

== ENCOUNTER 2021-03-22 15:21 | Observation (INO) | payer MEDICAID ==
[2021-03-22] MEDS ORDERED: Ondansetron 4 MG Tab.DIS PO PRN (16:39)
[2021-03-22] MEDS ORDERED: Magnesium Hydroxide 400 MG/5 ML Susp 30 ML Cup PO PRN (16:39)
[2021-03-22] MEDS ORDERED: LORazepam 2 MG/ML SDV IVPUSH PRN (16:39)
[2021-03-22] MEDS ORDERED: Ondansetron 4 MG/2 ML SDV IV PRN (16:39)
[2021-03-22] MEDS ORDERED: Acetaminophen 325 MG Tab PO PRN (16:39)
[2021-03-22] MEDS ORDERED: Acetaminophen/HYDROcodone 325-5 MG Tab PO PRN (16:40)
[2021-03-22] MEDS ORDERED: fentaNYL 100 MCG/2 ML SDV IVPUSH PRN (16:40)
[2021-03-22] MEDS ORDERED: Sodium Chloride 0.9% 1,000 ML IV SCH (16:45)
--- NOTE | 2021-03-22 16:49 | PCM.HP.2 ---
H&P History of Present Illness - General Date of Service: 03/22/21 Admit Problem/Dx: Admission Diagnosis/Problem Admission Diagnosis/Problem Acute appendicitis Source of Information: Patient, Family, Provider History Limitations: Reports: No Limitations - History of Present Illness Initial Comments - Free Text/Narative: CC: my belly hurt so bad HPI: Azalia presents to the hospital as a direct admission from the walk-in clinic. She reports right lower quadrant abdominal pain that started back on March 17, 5 days ago. Initially the pain was sharp and moderate in nature. CT scan at that time showed a mildly enlarged appendix but no stranding or significant findings. Labs were normal and vitals were normal. She was started on oral antibiotics. Over the last 5 days she has had a progression of her pain to the point that it is severe and she rates it at 9 out of 10. She had a great deal of difficulty getting to sleep last night because of pain. She has been using acetaminophen without much improvement. The pain does not radiate from the right lower quadrant. It has been steadily getting worse. It has been associated with nausea as well as vomiting. She had diarrhea last night. She has had chills but no subjective fevers. No obvious sick contacts. No history of difficulty with anesthesia. Repeat labs in the walk-in clinic were unremarkable. CT scan showed enlargement of the mildly dilated appendix compared to 5 days ago as well as some stranding around the appendix. She will be admitted for surgical management of early acute appendicitis. 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: Reports: Polycystic Ovaries Psychiatric History: Reports: ADHD, Anxiety, Bipolar, Depression Endocrine/Metabolic History: Reports: Obesity/BMI 30+ Dermatologic History: Reports: Other (See Below) Other Dermatologic History: wart like rash on inner right lower leg - Infectious Disease History Infectious Disease History: Reports: Chicken Pox, Novel Coronavirus Other Infectious Disease History: covid 06/2020 - Past Surgical History Head Surgeries/Procedures: Reports: None HEENT Surgical History: Reports: Adenoidectomy, Tonsillectomy, Other (See Below) Other HEENT Surgeries/Procedures: ear surgery Female Surgical History: Reports: None Endocrine Surgical History: Reports: None Dermatological Surgical History: Reports: None Social & Family History - Family History Family Medical History: No Pertinent Family History - Tobacco Use Tobacco Use Status *Q: Never Tobacco User - Caffeine Use Caffeine Use: Reports: Soda - Alcohol Use Alcohol Use History: Yes Alcohol Use in Last Twelve Months: Yes Alcohol Use Frequency: Rarely - Recreational Drug Use Recreational Drug Use: No H&P Review of Systems - Review of Systems: Review Of Systems: See Below Free Text/Narrative: A complete 12 point review of systems was obtained. Pertinent positives and negatives are noted in the history of present illness. All other systems were reviewed and were negative except as noted. Exam - Exam Exam: See Below - Vital Signs Vital Signs: Last Vital Signs Temp 36.4 C 03/22/21 15:35 Pulse 67 03/22/21 15:35 Resp 16 03/22/21 15:35 BP 122/75 03/22/21 15:35 Pulse Ox 99 03/22/21 15:35 Weight: 601.554 kg - Exam Quality Assessment: No: Supplemental Oxygen General: Alert, Oriented, Cooperative, Mild Distress HEENT: Conjunctiva Clear. No: Mucosa Moist & [place] (Dry) Neck: Supple, Trachea Midline Lungs: Clear to Auscultation, Normal Respiratory Effort Cardiovascular: Regular Rate, Regular Rhythm GI/Abdominal Exam: Normal Bowel Sounds, Soft, No Distention, Guarding, Rebound, Tender (Moderate tenderness on the right side and especially in the right lower quadrant) Back Exam: Normal Inspection, Full Range of Motion Extremities: No Pedal Edema. No: Increased Warmth Peripheral Pulses: 2+: Dorsalis Pedis (L), Dorsalis Pedis (R) Skin: Warm, Dry, Rash (2 x 4 cm plaque-like mass with slight erythema and scale right medial lower leg) Neuro Extensive - Mental Status: Alert, Oriented x3, Nl Response to Commands Neuro Extensive - Motor, Sensory, Reflexes: No: Dysarthria, Abnormal Motor, Tremor Psychiatric: Alert, Normal Affect - Patient Data Lab Results Last 24 hrs: White count is normal, potassium 3.8, creatinine normal with a GFR greater than 60 Imaging Impressions Last 24 hrs: CT scan of the abdomen pelvis-I did personally review the images obtained earlier in the day-there is mild to moderate dilation of the appendix as well as some surrounding stranding. No evidence for perforation. There is some regional lymphadenopathy as well. Sepsis Event Note - Evaluation Sepsis Screening Result: No Definite Risk - Focused Exam Vital Signs: Vital Signs Temp Pulse Resp BP Pulse Ox 03/22/21 15:35 36.4 C 67 16 122/75 99 *Q Meaningful Use (ADM) - VTE *Q VTE Pharmacological Contraindications *Q: Patient Scheduled Surgery - VTE Risk Assess *Q Each Risk Factor Represents 1 Point: Obesity ( BMI > 25 kg/m2) Total Score 1 Point Risk Factors: 1 Each Risk Factor Represents 2 Points: None Total Score 2 Point Risk Factors: 0 Each Risk Factor Represents 3 Points: None Total Score 3 Point Risk Factors: 0 Each Risk Factor Represents 5 Points: None Total Score 5 Point Risk Factors: 0 Venous Thromboembolism Risk Factor Score *Q: 1 - Problem List (1) Acute appendicitis with localized peritonitis without perforation SNOMED Code(s): 771273592 ICD Code: K35.30 - ACUTE APPENDICITIS WITH LOC PERITONITIS, W/O PERF OR GANGR Status: Acute Current Visit: Yes Qualifiers: Appendicitis gangrene presence: with gangrene Appendicitis abscess presence: without abscess Qualified Code(s): K35.31 - Acute appendicitis with localized peritonitis and gangrene, without perforation Problem List Initiated/Reviewed/Updated: Yes Orders Last 24hrs: Active Orders 24 hr Category Date Time Status Patient Status [ADT] Routine ADT 03/22/21 16:39 Ordered Antiembolic Devices [RC] .Routine Care 03/22/21 16:40 Ordered Intake and Output [RC] QSHIFT Care 03/22/21 16:39 Ordered Notify Provider Consults [RC] ASDIRECTED Care 03/22/21 16:42 Ordered Notify Provider Vital Signs [RC] ASDIRECTED Care 03/22/21 16:39 Ordered Oxygen Therapy [RC] PRN Care 03/22/21 16:39 Ordered Up ad Britany [RC] ASDIRECTED Care 03/22/21 16:39 Ordered VTE/DVT Education [RC] Per Unit Routine Care 03/22/21 16:39 Ordered Vital Signs [RC] Q4H Care 03/22/21 16:39 Ordered Consult to Physician [CONS] Routine Cons 03/22/21 16:40 Ordered Nothing per Oral After Midnight Diet [DIET] Diet 03/22/21 Dinner Ordered Regular Diet [DIET] Diet 03/22/21 Dinner Ordered BASIC METABOLIC PANEL,BMP [CHEM] AM Lab 03/23/21 05:11 Ordered CBC W/O DIFF,HEMOGRAM [HEME] AM Lab 03/23/21 05:11 Ordered Acetaminophen [TylenoL] Med 03/22/21 16:39 Ordered 650 mg PO Q4H PRN Acetaminophen/HYDROcodone [[place] 325-5 MG] Med 03/22/21 16:40 Ordered 1 - 2 tab PO Q4H PRN Ampicillin/Sulbactam Na [Unasyn] 3 gm Med 03/22/21 16:45 Ordered Sodium Chloride 0.9% [Normal Saline] 100 ml IV Q6H Aztreonam [Azactam] 1 gm Med 03/22/21 16:45 Ordered Sodium Chloride 0.9% [Normal Saline] 50 ml IV Q8H Docusate Sodium/Sennosides [Senna Plus] Med 03/22/21 16:39 Ordered 1 tab PO BID PRN LORazepam [Ativan] Med 03/22/21 16:39 Ordered 0.5 mg IVPUSH Q4H PRN Lactobacillus Rhamnosus GG [Culturelle] Med 03/22/21 21:00 Ordered 1 cap PO BID Magnesium Hydroxide [Milk of Magnesia] Med 03/22/21 16:39 Ordered 30 ml PO Q12H PRN Ondansetron [Zofran ODT] Med 03/22/21 16:39 Ordered 4 mg PO Q6H PRN Ondansetron [Zofran] Med 03/22/21 16:39 Ordered 4 mg IV Q6H PRN Sodium Chloride 0.9% [Normal Saline] 1,000 ml Med 03/22/21 16:45 Ordered IV ASDIRECTED fentaNYL [Sublimaze] Med 03/22/21 16:40 Ordered 25 mcg IVPUSH Q2H PRN Sequential Compression Device [OM.PC] Routine Oth 03/22/21 16:39 Ordered Resuscitation Status Routine Resus Stat 03/22/21 16:39 Ordered Assessment/Plan Comment:: ASSESSMENT AND PLAN - Acute appendicitis with localized peritonitis-progressive symptoms over the last 5 days. Increasing distention and new stranding around the appendix. Labs are normal. Vitals are fine. Patient having significant pain as well as nausea and vomiting. Case discussed with surgeon and surgical intervention planned for tomorrow. Getting worse despite outpatient antibiotics. Patient is in optimal achievable medical condition and is stable for the proposed procedure. -Antibiotic coverage with Unasyn and aztreonam -IV fluids -Symptomatic management of pain and nausea -Covid screen -Surgical intervention planned for early tomorrow Maintenance issues - -DVT prophylaxis-mechanical -GI prophylaxis-not indicated -Nutrition-regular diet this evening and nothing by mouth after 10 PM -Floyd catheter-not indicated full code CODE STATUS - Admission justification -this patient will be admitted for observation and surgical management of early acute appendicitis Disposition -I anticipate discharge home after the hospital stay Primary care physician -no local primary care Angel Stanton M.D. - Mortality Measure Prognosis:: Good
[2021-03-22] MEDS: Ampicillin/Sulbactam Na 3 GM in Sodium Chloride 0.9% 100 ML IV SCH ×2 (18:34→23:46)
[2021-03-22] MEDS: Lactobacillus Rhamnosus GG (Probiotic) Cap PO SCH (22:22)
[2021-03-23] MEDS ORDERED: Bupivacaine 0.5%/EPINEPHrine 1:200,000 50 ML MDV ONE (04:55)
[2021-03-23] MEDS: Ampicillin/Sulbactam Na 3 GM in Sodium Chloride 0.9% 100 ML IV SCH ×3 (05:08→17:14)
[2021-03-23] MEDS ORDERED: Propofol 200 MG/20 ML SDV ONE (05:13)
[2021-03-23] MEDS ORDERED: Rocuronium 50 MG/5 ML Vial ONE (05:13)
[2021-03-23] MEDS ORDERED: Neostigmine Methylsulfate 1 MG/ML 5 ML Syringe ONE (05:13)
[2021-03-23] MEDS ORDERED: Dexamethasone 4 MG/ML SDV ONE (05:13)
[2021-03-23] MEDS ORDERED: Ondansetron 4 MG/2 ML SDV ONE (05:13)
[2021-03-23] MEDS ORDERED: Glycopyrrolate 0.2 MG/ML 5 ML MDV ONE (05:13)
[2021-03-23] MEDS ORDERED: fentaNYL 250 MCG/5 ML SDV ONE (05:15)
[2021-03-23] MEDS ORDERED: fentaNYL 100 MCG/2 ML SDV ONE (05:56)
[2021-03-23] MEDS ORDERED: hydrOXYzine HCL 100 MG/2 ML SDV IM ONE (05:59)
[2021-03-23] MEDS ORDERED: Sugammadex Sodium 200 MG/2 ML VIAL ONE (06:11)
[2021-03-23] MEDS ORDERED: HYDROmorphone 2 MG Tab PO PRN (07:44)
[2021-03-23] MEDS: Lactobacillus Rhamnosus GG (Probiotic) Cap PO SCH ×2 (08:45→20:46)
[2021-03-23] MEDS: Ibuprofen 600 MG Tab PO SCH ×3 (08:46→20:45)
[2021-03-23] MEDS: Lactated Ringers 1,000 ML IV SCH ×2 (09:42→20:32)
[2021-03-23] MEDS: Acetaminophen 500 MG Tab PO SCH ×3 (10:40→21:53)
[2021-03-24] MEDS: Ampicillin/Sulbactam Na 3 GM in Sodium Chloride 0.9% 100 ML IV SCH ×2 (00:44→05:05)
[2021-03-24] MEDS: Ibuprofen 600 MG Tab PO SCH ×2 (02:49→08:22)
[2021-03-24] MEDS: Acetaminophen 500 MG Tab PO SCH (05:05)
[2021-03-24] MEDS ORDERED: Magnesium Hydroxide 400 MG/5 ML Susp 30 ML Cup PO PRN (07:55)
--- NOTE | 2021-03-24 08:06 | DISCH ---
FINAL DIAGNOSIS: Acute appendicitis. SECONDARY DIAGNOSIS: Polycystic ovary syndrome. OPERATIVE PROCEDURES: Diagnostic laparoscopy with appendectomy. SUMMARY: This is a 20-year-old female presenting with worsening right abdominal pain. Eventually, it became evident this was likely appendicitis. The patient given IV antibiotics and agreed to laparoscopic appendectomy. She had a nonruptured obvious acute appendicitis. She had an unremarkable postoperative course. She would be sent home with Tylenol and ibuprofen as needed for pain along with Dilaudid 2 mg q.6 hours p.r.n. pain #12 and Colace 100 mg p.o. b.i.d. x2 weeks and then p.r.n. and we will send her home with 2 doses of milk of magnesia as well. Wound care instructions were given along with activity level and she will be following with Ara Rock at [facility] on 04/01/2021. /[id number]
[2021-03-24] MEDS: Lactobacillus Rhamnosus GG (Probiotic) Cap PO SCH (08:22)
--- NOTE | 2021-03-30 16:46 | OR ---
DATE OF PROCEDURE: 03/23/2021 SURGEON: Martinez Armstrong MD PREOPERATIVE DIAGNOSIS: Acute appendicitis. POSTOPERATIVE DIAGNOSIS: Acute appendicitis. PROCEDURE: Laparoscopic appendectomy ([id number]). ANESTHESIA: General. INDICATION FOR PROCEDURE: A 20-year-old female presents with increasing right lower quadrant pain. This has been going on for several days, most current imaging showed somewhat distended. The patient was admitted overnight, was initiated on IV antibiotics and is to undergo diagnostic laparoscopy, possible laparotomy with appendectomy this morning. Potential risks including bleeding and infection, problems with appendectomy site dehiscing were all gone over with the patient and mother and they wished to proceed. DETAILS OF PROCEDURE: The patient was taken to the operating room and placed in a supine position. After general endotracheal anesthesia was induced, the abdomen was prepped and draped. Three fingerbreadths superior and to the left of the umbilicus, a transverse incision was made. Peritoneal cavity entered under direct vision with an Optiview trocar, inflated to 15 mmHg pressure of CO2. Laparoscope was reinserted. No underlying trocar insertion site injuries seen. Following this, a 12 mm trocars were placed in the left lower quadrant and right upper quadrant. Abdominal transverse abdominis plane blocks were placed. Appendix was then easily identified coursing somewhat anterior and inferior to the cecal base. This was mobilized upward and the mesentery of the appendix was then divided with Harmonic Scalpel. The base of the appendix was then excised flush with the cecum with a SUSIE villafana load. Good hemostasis at the appendectomy site was confirmed, and at that point, the appendix was retrieved through the specimen bag in the left lower quadrant. No further problems were noted at this point. Drain was felt not to be necessary. The trocars were then sequentially removed and the fascia closed with 0 Vicryl stitch and the skin with 4-0 Vicryl subcuticular stitch. Dressing was applied. The patient was taken to the recovery room in satisfactory condition. Martinez Armstrong MD /[id number]
== END 2021-03-24 09:45 | disposition home or self-care (01) ==
LOC: JP.MS 15:21
PROVIDERS: ADMIT Internal Medicine; ATTEND Internal Medicine
DX: K35.30 Acute appendicitis with localized peritonitis, without perforation or gangrene (principal); E28.2 Polycystic ovarian syndrome; E66.9 Obesity, unspecified; Z79.899 Other long term (current) drug therapy; Z98.890 Other specified postprocedural states; Z01.812 Encounter for preprocedural laboratory examination; Z20.822 Contact with and (suspected) exposure to COVID-19; Z68.41 Body mass index [BMI] 40.0-44.9, adult
CPT/HCPCS: 36415; 44970; 80048; 85027; 87635; 94762; 96365; 96367; 96376; A9270; G0378; J0171; J0295; J1100; J2405; J2704; J2710; J2795; J3010; J3410; J3490; J7030; J7120; 88304; 88341; 88342; 88360; U0002

== ENCOUNTER 2021-04-11 10:36 | Emergency (ER) | payer MEDICAID ==
[2021-04-11] MEDS ORDERED: fentaNYL 100 MCG/2 ML SDV IVPUSH PRN (11:35)
[2021-04-11] MEDS ORDERED: Ondansetron 4 MG/2 ML SDV IVPUSH ONE (11:35)
--- NOTE | 2021-04-11 11:41 | EDM.PDOC ---
ED HPI GENERAL MEDICAL PROBLEM - General Chief Complaint: Abdominal Pain Stated Complaint: PAIN AFTER APENDIX OUT Time Seen by Provider: 04/11/21 11:09 - History of Present Illness INITIAL COMMENTS - FREE TEXT/NARRATIVE: Left lower quad abdomen pain for one week. Described as sharp, burning, constant, and severe. Worse with sitting up, touching the area and rolling in bed. Had a normal BM this am. No N/V. No fever. Appendectomy here on 03/23. Seen in Urgent care one week ago and told it was gas. NOt sexually active, No vaginal discharge. LMP in February and hx of PCOS. 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: Reports: Polycystic Ovaries Psychiatric History: Reports: ADHD, Anxiety, Bipolar, Depression Endocrine/Metabolic History: Reports: Obesity/BMI 30+ Dermatologic History: Reports: Other (See Below) Other Dermatologic History: wart like rash on inner right lower leg - Infectious Disease History Infectious Disease History: Reports: Chicken Pox, Novel Coronavirus Other Infectious Disease History: covid 06/2020 - Past Surgical History Head Surgeries/Procedures: Reports: None HEENT Surgical History: Reports: Adenoidectomy, Tonsillectomy, Other (See Below) Other HEENT Surgeries/Procedures: ear surgery GI Surgical History: Reports: Appendectomy Social & Family History - Family History Family Medical History: No Pertinent Family History - Tobacco Use Tobacco Use Status *Q: Never Tobacco User - Caffeine Use Caffeine Use: Reports: None - Recreational Drug Use Recreational Drug Use: No ED ROS GENERAL - Review of Systems Review Of Systems: See Below Constitutional: Reports: Chills, Night Sweats. Denies: Fever HEENT: Reports: No Symptoms Respiratory: Reports: No Symptoms Cardiovascular: Reports: No Symptoms Endocrine: Reports: No Symptoms GI/Abdominal: Reports: Abdominal Pain. Denies: Constipation, Diarrhea, Nausea, Vomiting : Reports: No Symptoms Musculoskeletal: Reports: No Symptoms Skin: Reports: No Symptoms Neurological: Reports: No Symptoms ED EXAM, GI/ABD - Physical Exam Exam: See Below Exam Limited By: No Limitations General Appearance: Alert, WD/WN, Mild Distress Throat/Mouth: Normal Inspection, Normal Lips, Normal Teeth Head: Normocephalic Neck: Normal Inspection, Supple, Non-Tender. No: Lymphadenopathy (R), Lymphadenopathy (L) Respiratory/Chest: No Respiratory Distress, Lungs Clear, Normal Breath Sounds Cardiovascular: Regular Rate, Rhythm, No Gallop, No Murmur GI/Abdominal Exam: Other (decreased abd pain. Pain with light touch LLQ. Guarding. Laporoscopy scars look good. ) Course - Vital Signs Text/Narrative:: The patient was evaluated. VSS, NAD Exam= tender LLQ, guarding and decreased bowel sounds. Lab= Normal CBC, BMP, Lipase, lactate, LFT, U/A and neg UHCG. IMaging= Normal pelvic U/S and Abd/pelvis CT with contrast. Lots of gas and bowel feces. Patient given IV fluids and pain meds. She will take laxative including Miralax. F/U with pcp if symptoms worsen or if she is concerned. Last Recorded V/S: Last Vital Signs Temp 36.4 C 04/11/21 11:17 Pulse 64 04/11/21 14:04 Resp 16 04/11/21 14:04 BP 109/47 L 04/11/21 14:04 Pulse Ox 95 04/11/21 14:04 - Orders/Labs/Meds Orders: Active Orders 24 hr Category Date Time Status Pelvis Non OB Ltd [US] Stat Exams 04/11/21 11:47 Taken Sodium Chloride 0.9% [Normal Saline] 1,000 ml Med 04/11/21 11:45 Active IV ASDIRECTED Sodium Chloride 0.9% [Normal Saline] 90 ml Med 04/11/21 13:45 Active IV ASDIRECTED fentaNYL [Sublimaze] Med 04/11/21 11:35 Active 50 mcg IVPUSH Q6H PRN Medication Orders Fentanyl (Fentanyl 100 Mcg/2 Ml Sdv) 50 mcg IVPUSH Q6H PRN PRN Reason: Pain (severe 7-10) Last Admin: 04/11/21 12:22 Dose: 50 mcg Documented by: MJBSTA Sodium Chloride (Normal Saline) 1,000 mls @ 1,000 mls/hr IV ASDIRECTED [facility] Last Admin: 04/11/21 12:22 Dose: 1,000 mls/hr Documented by: KEISHA Sodium Chloride (Normal Saline) 90 mls @ 3.5 mls/sec IV ASDIRECTED CARLOS ENRIQUE Last Admin: 04/11/21 13:53 Dose: 3 mls/sec Documented by: DECRMIC Labs: Laboratory Tests 04/11/21 04/11/21 04/11/21 Range/Units 11:49 11:49 11:49 WBC 7.9 (4.5-11.0) K/uL RBC 4.90 (3.30-5.50) M/uL Hgb 13.0 (12.0-15.0) g/dL Hct 39.6 (36.0-48.0) % MCV 81 (80-98) fL MCH 27 (27-31) pg MCHC 33 (32-36) % Plt Count 301 (150-400) K/uL Sodium 137 L (140-148) mmol/L Potassium 3.9 (3.6-5.2) mmol/L Chloride 102 (100-108) mmol/L Carbon Dioxide 26 (21-32) mmol/L Anion Gap 12.9 (5.0-14.0) mmol/L BUN 22 H D (7-18) mg/dL Creatinine 0.7 (0.6-1.0) mg/dL Est Cr Clr Drug Dosing 89.78 mL/min Estimated GFR (MDRD) > 60 (>60) Glucose 90 (74-106) mg/dL Lactic Acid 1.0 (0.4-2.0) mmol/L Calcium 8.6 (8.5-10.1) mg/dL Total Bilirubin 0.5 (0.2-1.0) mg/dL AST 16 (15-37) U/L ALT 30 (12-78) U/L Alkaline Phosphatase 54 (46-116) U/L Total Protein 7.1 (6.4-8.2) g/dL Albumin 3.5 (3.4-5.0) g/dL Globulin 3.6 H (2.3-3.5) g/dL Albumin/Globulin Ratio 1.0 L (1.2-2.2) Lipase 125 (73-393) U/L Urine Color (YELLOW) Urine Appearance (CLEAR) Urine pH (5.0-8.0) Ur Specific [place] (1.008-1.030) Urine Protein (NEGATIVE) mg/dL Urine Glucose (UA) (NEGATIVE) mg/dL Urine Ketones (NEGATIVE) mg/dL Urine Occult Blood (NEGATIVE) Urine Nitrite (NEGATIVE) Urine Bilirubin (NEGATIVE) Urine Urobilinogen (0.2-1.0) EU/dL Ur Leukocyte Esterase (NEGATIVE) Urine RBC (0-5) Urine WBC (0-5) Ur Epithelial Cells Amorphous Sediment Urine Bacteria Urine Mucus Urine HCG, Qual SARS-CoV-2 RNA (KENNY) (NEGATIVE) 04/11/21 04/11/21 04/11/21 Range/Units 13:55 13:55 14:03 WBC (4.5-11.0) K/uL RBC (3.30-5.50) M/uL Hgb (12.0-15.0) g/dL Hct (36.0-48.0) % MCV (80-98) fL MCH (27-31) pg MCHC (32-36) % Plt Count (150-400) K/uL Sodium (140-148) mmol/L Potassium (3.6-5.2) mmol/L Chloride (100-108) mmol/L Carbon Dioxide (21-32) mmol/L Anion Gap (5.0-14.0) mmol/L BUN (7-18) mg/dL Creatinine (0.6-1.0) mg/dL Est Cr Clr Drug Dosing mL/min Estimated GFR (MDRD) (>60) Glucose (74-106) mg/dL Lactic Acid (0.4-2.0) mmol/L Calcium (8.5-10.1) mg/dL Total Bilirubin (0.2-1.0) mg/dL AST (15-37) U/L ALT (12-78) U/L Alkaline Phosphatase (46-116) U/L Total Protein (6.4-8.2) g/dL Albumin (3.4-5.0) g/dL Globulin (2.3-3.5) g/dL Albumin/Globulin Ratio (1.2-2.2) Lipase (73-393) U/L Urine Color Yellow (YELLOW) Urine Appearance Cloudy A (CLEAR) Urine pH 6.5 (5.0-8.0) Ur Specific [place] > 1.030 (1.008-1.030) Urine Protein Negative (NEGATIVE) mg/dL Urine Glucose (UA) Negative (NEGATIVE) mg/dL Urine Ketones Negative (NEGATIVE) mg/dL Urine Occult Blood Negative (NEGATIVE) Urine Nitrite Negative (NEGATIVE) Urine Bilirubin Negative (NEGATIVE) Urine Urobilinogen 0.2 (0.2-1.0) EU/dL Ur Leukocyte Esterase Negative (NEGATIVE) Urine RBC Not seen (0-5) Urine WBC 0-5 (0-5) Ur Epithelial Cells Moderate Amorphous Sediment Not seen Urine Bacteria Many Urine Mucus Many Urine HCG, Qual Negative SARS-CoV-2 RNA (KENNY) Negative (NEGATIVE) Meds: Medications Generic Name Dose Route Start Last Admin Trade Name Freq PRN Reason Stop Dose Admin Fentanyl 50 mcg 04/11/21 11:35 04/11/21 12:22 Fentanyl 100 Mcg/2 Ml Sdv IVPUSH 50 mcg Q6H PRN Administration Pain (severe 7-10) Sodium Chloride 1,000 mls @ 1,000 mls/hr 04/11/21 11:45 04/11/21 12:22 Normal Saline IV 1,000 mls/hr ASDIRECTED CARLOS ENRIQUE Administration Sodium Chloride 90 mls @ 3.5 mls/sec 04/11/21 13:45 04/11/21 13:53 Normal Saline IV 3 mls/sec ASDIRECTED CARLOS ENRIQUE Administration Discontinued Medications Generic Name Dose Route Start Last Admin Trade Name Freq PRN Reason Stop Dose Admin Iopamidol 150 ml 04/11/21 13:45 04/11/21 13:53 Iopamidol 612 Mg/Ml 500 Ml Multipack Bottle IV 04/11/21 13:46 150 ml ONETIME ONE Administration Ondansetron HCl 4 mg 04/11/21 11:35 04/11/21 12:23 Ondansetron 4 Mg/2 Ml Sdv IVPUSH 04/11/21 11:36 4 mg ONETIME ONE Administration Departure - Departure Time of Disposition: 15:08 Disposition: Home, Self-Care 01 Condition: Good Clinical Impression: Constipation - Discharge Information Instructions: Constipation, Adult Referrals: Danya Jorge PA-C [Primary Care Provider] - Forms: ED Department Discharge Sepsis Event Note (ED) - Evaluation Sepsis Screening Result: No Definite Risk - Focused Exam Vital Signs: Vital Signs Temp Pulse Resp BP Pulse Ox 04/11/21 14:04 64 16 109/47 L 95 04/11/21 11:17 36.4 C 62 16 109/57 L 97 04/11/21 11:02 36.4 C 62 16 109/57 L 97 - My Orders Last 24 Hours: My Active Orders 04/11/21 11:35 fentaNYL [Sublimaze] 50 mcg IVPUSH Q6H PRN 04/11/21 11:45 Sodium Chloride 0.9% [Normal Saline] 1,000 ml IV ASDIRECTED 04/11/21 11:47 Pelvis Non OB Ltd [US] Stat 04/11/21 13:45 Sodium Chloride 0.9% [Normal Saline] 90 ml IV ASDIRECTED - Assessment/Plan Last 24 Hours: My Active Orders 04/11/21 11:35 fentaNYL [Sublimaze] 50 mcg IVPUSH Q6H PRN 04/11/21 11:45 Sodium Chloride 0.9% [Normal Saline] 1,000 ml IV ASDIRECTED 04/11/21 11:47 Pelvis Non OB Ltd [US] Stat 04/11/21 13:45 Sodium Chloride 0.9% [Normal Saline] 90 ml IV ASDIRECTED
[2021-04-11] MEDS ORDERED: Sodium Chloride 0.9% 1,000 ML IV SCH (11:45)
[2021-04-11] MEDS ORDERED: Iopamidol 612 MG/ML 500 ML Multipack Bottle IV ONE (13:45)
[2021-04-11] MEDS ORDERED: Sodium Chloride 0.9% 90 ML IV SCH (13:45)
--- NOTE | 2021-04-11 14:27 | US ---
Transvaginal Non OB CLINICAL HISTORY: Left lower quadrant pain FINDINGS: Real-time transabdominal and transvaginal images are obtained through the pelvis. No free fluid is seen. The uterus measures 7.1 x 3.0 x 4.0 cm. Endometrial thickness is 3 mm which is normal. Right ovary measures 3.5 x 2.2 x 3.2 cm. Left ovary measures 3.9 x 2.5 x 2.8 cm. There is normal arterial and venous flow in both ovaries IMPRESSION: Essentially negative pelvic ultrasound
--- NOTE | 2021-04-11 14:47 | CT ---
Abdomen Pelvis w Cont CLINICAL HISTORY: Left lower quadrant pain COMPARISON: 03/22/2021. TECHNIQUE: Transverse scans were obtained from the base of the lungs to the pubic symphysis following oral contrast and IV infusion of contrast.Auto dosage reduction and iterative reconstructiontechniques employed. FINDINGS: The lung bases are clear. The liver shows no mass or biliary dilatation. The gallbladder has a normal contour. The spleen has a normal size and shape. The pancreas shows no mass or inflammatory change. The adrenal glands appear normal bilaterally . The kidneys show no mass, stones or hydronephrosis. The ureters have a normal course and contour. The bladder is nondistended. Uterus has a normal appearance. No adnexal masses or abnormal fluid collections are seen. The aorta has a normal contour. There is no suspicious retroperitoneal adenopathy. There are a few scattered small lymph nodes scattered throughout the mesentery. This is similar to prior study Small intestinal configuration is nonacute. There is gas and feces throughout the colon. Patient has had recent appendectomy. Abdominal pelvic fat planes and low pelvic side beaver are well demarcated. IMPRESSION: Previous appendectomy No mass or inflammatory change There are a few scattered small nonspecific lymph nodes in the mesentery similar if not slightly reduced from prior study.
== END 2021-04-11 15:28 | disposition home or self-care (01) ==
LOC: JP.ED 10:36
DX: K59.00 Constipation, unspecified (principal); E66.9 Obesity, unspecified; Z68.42 Body mass index [BMI] 45.0-49.9, adult; Z20.822 Contact with and (suspected) exposure to COVID-19
CPT/HCPCS: 36415; 74177; 76830; 76857; 80053; 81001; 81025; 83605; 83690; 85027; 87635; 96374; 96375; 99284; J2405; J3010; J7030; Q9967; U0002

== ENCOUNTER 2024-04-05 18:33 | Emergency (ER) | payer MEDICARE, MEDICAID ==
[2024-04-05 18:48] LABS: BASOPHILS ABSOLUTE AUTO 0.08 K/uL (0.00-0.10); BASOPHILS PERCENT AUTO 0.7 % (0.1-1.3); EOSINOPHILS ABSOLUTE AUTO 0.59 K/uL (0.00-0.40); EOSINOPHILS PERCENT AUTO 4.9 % (0.0-5.4); HEMATOCRIT 41.2 % (34.3-46.0); HEMOGLOBIN 14.2 g/dL (11.2-15.5); IMMATURE GRAN ABSOLUTE AUTO 0.06 K/uL (0.00-0.23); IMMATURE GRAN PERCENT AUTO 0.5 % (0.0-0.7); LYMPHOCYTES ABSOLUTE AUTO 4.19 K/uL (0.8-3.3); LYMPHOCYTES PERCENT AUTO 34.6 % (11.4-47.7); MEAN CORPUSCULAR HEMOGLOBIN 27.5 pg (31.6-35.5); MEAN CORPUSCULAR HGB CONC 34.5 g/dL (31.6-35.5); MEAN CORPUSCULAR VOLUME 79.8 fL (81.4-99.0); MONOCYTES ABSOLUTE AUTO 0.71 K/uL (0.20-0.90); MONOCYTES PERCENT AUTO 5.9 % (3.3-12.6); NEUTROPHILS ABSOLUTE AUTO 6.48 K/uL (1.0-7.6); NEUTROPHILS PERCENT AUTO 53.4 % (40.0-78.1); PLATELET COUNT,PLT 258 K/uL (130-375); RED BLOOD CELL COUNT 5.16 M/uL (3.77-5.24); WHITE BLOOD CELL COUNT,WBC 12.1 K/uL (3.2-11.0)
[2024-04-05 19:08] LABS: ALANINE AMINOTRANSFERASE,ALT 52 U/L (12-78); ALBUMIN 3.6 g/dL (3.4-5.0); ALKALINE PHOSPHATASE 66 U/L (46-116); ANION GAP 13.1 mmol/L (5.0-14.0); ASPARTATE AMNIOTRANSFERASE,AST 30 U/L (15-37); BILIRUBIN TOTAL 0.5 mg/dL (0.2-1.0); BLOOD UREA NITROGEN,BUN 19 mg/dL (7-18); CALCIUM 9.3 mg/dL (8.5-10.1); CARBON DIOXIDE,CO2 24 mmol/L (21-32); CHLORIDE,CL 103 mmol/L (100-108); EST CRCL DRUG DOSING (CG) 67.43 mL/min; ESTIMATED GFR 80 mL/min (>60); GLUCOSE RANDOM 180 mg/dL (74-106); POTASSIUM,K 3.8 mmol/L (3.6-5.2); PROTEIN TOTAL,TP 7.4 g/dL (6.4-8.2); SODIUM,NA 140 mmol/L (140-148)
[2024-04-05 19:27] LABS: CORONAVIRUS COVID-19 NAA NEGATIVE (NEGATIVE); INFLUENZA A NAA NEGATIVE (NEGATIVE); INFLUENZA B NAA NEGATIVE (NEGATIVE); RESPIRATORY SYNCYTIAL VIR NAA NEGATIVE (NEGATIVE)
[2024-04-05] MEDS: Azithromycin 250 MG Tab PO ONE (20:08)
[2024-04-05] MEDS: cefTRIAXone 2 GM in Sodium Chloride 0.9% 50 ML IV ONE (20:08)
[2024-04-05] MEDS: Sodium Chloride 0.9% 1,000 ML IV SCH (20:08)
== END 2024-04-05 21:46 | disposition home or self-care (01) ==
LOC: JP.ED 18:33
DX: J18.9 Pneumonia, unspecified organism (principal); E66.9 Obesity, unspecified; Z79.899 Other long term (current) drug therapy; Z86.16 Personal history of COVID-19; Z90.49 Acquired absence of other specified parts of digestive tract; Z68.43 Body mass index [BMI] 50.0-59.9, adult
CPT/HCPCS: 0241U; 36415; 71045; 80053; 83605; 85025; 86140; 93005; 96361; 96365; 99284; A9270; J0696; J3490; J7030; 93010